=== PATIENT | female | born 1985 | race Native Hawaiian/Other Pacific Islander ===

== ENCOUNTER 2017-12-27 19:18 | Outpatient (CLI) | payer OTHER | END 2017-12-27 19:25 | disposition short-term general hospital (02) | LOC: AMB 19:18 | DX: R40.4 Transient alteration of awareness (principal) | CPT/HCPCS: A0425; A0427 ==

== ENCOUNTER 2017-12-27 19:40 | Observation (INO) | payer OTHER ==
[2017-12-27] VITALS (7 sets, daily range): BP systolic 74–121; BP diastolic 34–84; TEMP 97.9; Ht 170.2 cm; Wt 71.9 kg
[~2017-12-27] VITALS: Ht 170.2 cm; Wt 71.9 kg
[2017-12-27 20:09] LABS: PLATELET COUNT 233 K/uL (152-353)
[2017-12-27 20:18] LABS: POTASSIUM 3.5 mmol/L (3.6-5.2); SODIUM 138 mmol/L (136-145)
[2017-12-28] VITALS (19 sets, daily range): BP systolic 96–120; BP diastolic 45–95; TEMP 97.8–98.8
--- NOTE | 2017-12-28 01:16 | NUR ---
ZOFRAN 4MG IVSP GIVEN FOR COMPLAINTS OF NAUSEA. PT VOMITED APPROX 200 ML OF LIQUID VOMITUS.
--- NOTE | 2017-12-28 01:35 | NUR ---
PT WAS ADMITTED TO ICU 1 WITH DIAGNOSIS OF COCAINE/ALCOHOL/THC ABUSE. PT WAS POSITIONED IN BED. PT RECEIVING D51/2NS INFUSING AT 125 ML/HR VIA INFUSION PUMP. PT HAS JACK CATHETAR INTACT WITH YELLOW URINE DRAINING. PT IS EXPERIENCING ,TWEAKING. EYES DARTING AND LOOKING AROUND. SPEECH GARBLED.
--- NOTE | 2017-12-28 03:34 | NUR ---
PT RESTLESS . PT DOES SMILE AND INTERACT WITH STAFF.
--- NOTE | 2017-12-28 04:23 | NUR ---
PT WITH HAND TREMORS. PT STILL WITH GARBLED SPEECH.
--- NOTE | 2017-12-28 08:15 | NUR ---
FAMILY AT BS. PT LOUD STATES THAT "SHE WISHES THAT PEOPLE WOULD BACK THE FUCK OFF!"
--- NOTE | 2017-12-28 08:50 | NUR ---
BETO REEVES VASCULAR NURSE AT AND DR MOTA AT BS
[2017-12-28 10:13] LABS: PLATELET COUNT 238 K/uL (152-353)
[2017-12-28 10:38] LABS: POTASSIUM 3.4 mmol/L (3.6-5.2)
--- NOTE | 2017-12-28 12:05 | NUR ---
ISIDRO FROM [facility] CALLED STATED THAT PT WILL BE PLACED ON BOARD
--- NOTE | 2017-12-28 12:06 | NUR ---
JOSE SOFT WRIST REMOVED, PT CALM AT THIS TIME
--- NOTE | 2017-12-28 13:00 | NUR ---
PT ASKED IF I SAW THE DOG IN THE CORNER WITH THE BLUE THING ON HIM, PT WAS TOLD THAT THERE WAS NOT A DOG IN THE CORNER, IT WAS THE TRASH CAN AND THERE WAS A GLOVE ON THE EDGE OF CAN, PT ASKED IF HER HEAD WAS GOING TO BE ALRIGHT, PT WAS INSTRUCTED THAT WE WERE TAKING GOOD CARE OF HER. PT WAS ASKED AGAIN WHAAT SHE HAD TAKEN, PT DENIED TAKING ANYTHING AT THIS TIME, HOWEVER SHE DID TELL HER SISTER EARLIER THAT SHE HAD HAD ONE BEER LAST NIGHT.
--- NOTE | 2017-12-28 13:10 | NUR ---
PT AGITATED BY JACK CATH, CATH REMOVED.
--- NOTE | 2017-12-28 13:29 | NUR ---
PT SITTING UPP IN BED DRINKING SODA AT THIS TIME, WATCHING TV.
--- NOTE | 2017-12-28 13:55 | NUR ---
PT BATHING OFF.
--- NOTE | 2017-12-28 15:25 | NUR ---
FAMILY AT BS
--- NOTE | 2017-12-28 18:00 | NUR ---
ADRI FROM [facility] CALLED TO SAY THAT [facility] HAD NO BED. AT THIS TIME ONLY THIS FACILTY HAD RESPONDED
--- NOTE | 2017-12-28 22:10 | NUR ---
RESTING IN BED WITH EYES CLOSED, NO S/S OF PAIN OR DISTRESS NOTED, IV INTACT WITH FLUID ONGOING, RESP RATE NONLABORED, WILL CONTINUE TO MONITOR CLOSELY, RAILS UP, BED IN LOW POSITION.
[2017-12-29] VITALS (20 sets, daily range): BP systolic 84–116; BP diastolic 55–81; TEMP 98.2–99.1
--- NOTE | 2017-12-29 00:16 | NUR ---
PT CONTINUES TO REST IN BED WITH EYES CLOSED ON HER R SIDE, NO S/S OF PAIN OR DISTRESS NOTED, IV INTACT TO R AC WITH FLUID ONGOING, RESP RATE NONLABORED, VITALS BEING MONITORED, WILL MONITOR CLOSELY, RAILS UP, BED IN LOW POSITION.
--- NOTE | 2017-12-29 02:02 | NUR ---
PT IS BECOMING MORE ALERT. SHE SAYS THAT SHE IS UNSURE OF HOW SHE GOT HERE OR WHAT HAPPENED. THE LAST THING THAT SHE REMEMBERS WAS LAYING DOWN ON A MATRESS IN THE FLOOR. SHE SAID THAT SHE WAS DRINKING ALCOHOL EARLIER IN THE DAY AND HAD A BUZZ SO SHE LAID DOWN. THE NEXT THING SHE KNOWS SHE WAS WAKING UP IN THE ER. WILL CONTINUE TO MONITOR.
--- NOTE | 2017-12-29 05:53 | NUR ---
AROUND 0430 [facility] CALLED REQUESTING H&H, 1013 AND LABS FOR PT. INFORMATION WAS SENT VIA FAX REQUESTED. CURRENTLY WAITING FOR RESPONSE FROM [facility].
--- NOTE | 2017-12-29 05:56 | NUR ---
PT IS DIAPHORETIC AND SAYS THAT SHE IS COLD. SHE SEEMS TO BE MORE ALERT THIS MORNING. WILL CONTINUE TO MONITOR.
--- NOTE | 2017-12-29 09:15 | NUR ---
BETO REEVES, HOOP MAKER MACHINE AT BEDSIDE TO EXAMINE PATIENT. NEW ORDERS RECEIVED.
--- NOTE | 2017-12-29 09:40 | NUR ---
PATIENT TAKEN TO XRAY VIA WHEELCHAIR. GEORGIE FRANKEL RN ASSISSTED.
--- NOTE | 2017-12-29 09:46 | NUR ---
RETURNED FROM [facility].
[2017-12-29 10:41] LABS: PLATELET COUNT 239 K/uL (152-353)
[2017-12-29 11:04] LABS: POTASSIUM 3.4 mmol/L (3.6-5.2)
--- NOTE | 2017-12-29 11:39 | NUR ---
NEW ORDERS RECEIVED. BLOOD CULTURES X 2 COLLECTED AND SENT TO LAB.
--- NOTE | 2017-12-29 13:00 | NUR ---
OFFERED TO ASSIST OR SET UP FOR BATH. PATIENT REQUESTED TO WAIT BUT WAS GIVEN CLOTH TO WASH HER FACE AND HANDS AND A HAIRBRUSH.
--- NOTE | 2017-12-29 14:25 | NUR ---
ELDA FROM [facility] CALLED ABOUT THE REJECTION OF THE PATIENT AT THAT FACILITY. DUE TO HIGH ALCOHOL LEVEL AND POSITIVE DRUG SCREEN, DR. MAURO RECOMMENDED PLACEMENT AT A REHAB FACILITY. [facility] DO NOT HAVE REHAB TREATMENT. [facility] NOTIFIED.
--- NOTE | 2017-12-29 14:30 | NUR ---
PATIENT SPOKE TO HER SISTER ON THE PHONE. STATES THAT SHE REALLY DOESN'T WANT TO GO TO REHAB. SHE IS TEARFUL AND ANXIOUS WANTING SOMEONE TO COME SIT WITH HER.
--- NOTE | 2017-12-29 15:23 | NUR ---
SPOKE WITH COUNSELOR FROM [facility]. A COUNSELOR WILL ARRIVE AROUND 6-6:30 TO TALK WITH PATIENT AND MAKE EVALUATION.
--- NOTE | 2017-12-29 18:00 | NUR ---
PT REQUESTED A SHOWER. PT ESCORTED TO ROOM 1121 BY GEORGIE FRANKEL RN. PT INDEPENDENTLY SHOWERED AND BRUSHED HER TEETH. LINEN CHANGED ON BED.
--- NOTE | 2017-12-29 18:49 | NUR ---
BRITTANY WITH [facility] HERE TO EVALATE PATIENT NEEDS AND DISCHARGE PLANNING/PLACEMENT.
--- NOTE | 2017-12-29 19:29 | NUR ---
SPOKE TO BRITTANY FOLLOWING HER CONVERSATION WITH PATIENT. [address] REMAIN IN [address]ACE ACCORDING TO [facility] RECOMMENDATIONS. SHE HAS BEEN PUT BACK ON THE PLACEMENT BOARD AND IS BEING REVIEWED AT THIS TIME.
--- NOTE | 2017-12-29 20:34 | NUR ---
RCD PT MENTAL HEALTH WORKER AT BEDSIDE .cRIES EASILY REFUSED MONITOR PULLES OFF.SISTER AT BEDSIDE ATTEMPTED TO FAX [facility] .
--- NOTE | 2017-12-29 20:45 | NUR ---
[facility] CALLED BED AVAILABLE FAMILY AWARE BUT NOT PATIENT STILL WANTING TO GO HOME.PAPER REQ SENT
--- NOTE | 2017-12-29 23:00 | NUR ---
C/O NAUSEA ZOFRAN GIVEN PER DR KELSEY
[2017-12-30] VITALS: BP 100/60; TEMP 98.4
--- NOTE | 2017-12-30 | NUR ---
NAUSEA IMPROVED EATING CEREAL/JAYMIE CRACKERS
--- NOTE | 2017-12-30 00:30 | NUR ---
[facility] OFFICE CALLED UNABLE TO TRANSPORT UNTIL AM D/T STAFFING FAMILY,PATIENT AND [facility] NOTIFIED .PATIENT APEARS T BE SATISFIEDNSLEEPING
--- NOTE | 2017-12-30 03:00 | NUR ---
SLEEPING EASILY ROUSED DENIES NAUSEA OR HEADACHE
[2017-12-30 05:00] VITALS: BP 106/64; TEMP 99
--- NOTE | 2017-12-30 05:00 | NUR ---
CONT TO SLEEP EASILY ROUSED NO S/S OF WITHDRAWL NOTED
[2017-12-30 06:29] LABS: PLATELET COUNT 217 K/uL (152-353)
--- NOTE | 2017-12-30 07:06 | NUR ---
sheriff Pacheco here TO TRANSFER PT ALERT STABLE [facility] NOTIFIED AMBULATORY.
[2017-12-30 09:45] LABS: POTASSIUM 4.1 mmol/L (3.6-5.2)
== END 2017-12-30 07:00 | disposition other institution (70) ==
LOC: ED 19:40 → ICU 21:35 → EDBD 21:35 → ICU 12-29 00:26
PROVIDERS: Emergency Medicine
DX: F14.10 Cocaine abuse, uncomplicated (principal); F10.10 Alcohol abuse, uncomplicated; F12.10 Cannabis abuse, uncomplicated; G44.89 Other headache syndrome; R06.2 Wheezing
CPT/HCPCS: 36415; 51702; 80053; 80307; 80320; 80329; 81000; 82550; 82962; 83605; 84484; 85027; 87040; 94664; 94760; 96361; 96365; 96367; 96372; 96375; 96376; 99220; 99285; G0378; J0696; J1650; J2310; J2405; J2930; J3490

== ENCOUNTER 2018-07-11 15:15 | Emergency (ER) | payer OTHER ==
[~2018-07-11] VITALS: Ht 162.6 cm; Wt 68.0 kg
[2018-07-11 15:20] VITALS: TEMP 97.5
[2018-07-11 16:04] VITALS: BP 128/81
== END 2018-07-11 16:23 | disposition home or self-care (01) ==
LOC: ED 15:15
DX: K04.7 Periapical abscess without sinus (principal); L03.211 Cellulitis of face
CPT/HCPCS: 99282